=== PATIENT | male | born 1965 | race Caucasian/White ===

== ENCOUNTER 2018-08-22 18:41 | Emergency (ER) | payer OTHER, BC ==
[2018-08-22 19:09] VITALS: BP 139/93
[2018-08-22] MEDS ORDERED: Orphenadrine 100 MG Tab.ER PO STA (19:38)
--- NOTE | 2018-08-22 19:43 | EDM.PDOC ---
ED HPI GENERAL MEDICAL PROBLEM - General Chief Complaint: Back Pain or Injury Stated Complaint: TWISTED LOWER RIGHT BACK AT WORK Time Seen by Provider: 08/22/18 19:09 Source of Information: Reports: Patient, RN Notes Reviewed History Limitations: Reports: No Limitations - History of Present Illness INITIAL COMMENTS - FREE TEXT/NARRATIVE: The patient states that he slipped around 14:45, while at work. He states that he did not fall, but he incurred right lower back pain with radiation down his posterior thigh to about the level of the knee. He states that he continued to work, slowly. The pain was made worse with twisting motions, but essentially resolved if he remained still. He had no weakness, however, about 10 minutes later, his right lower extremity simply gave out while he was walking around his truck, and he fell to the ground. The patient states that he has had prior lower back pain with lower extremity radiculopathy. He states that he developed similar symptoms on 07/01/2018, causing him to be out of work for about 2-1/2 weeks. A workup included a CT scan , and treatment included a muscle relaxant, physical therapy, and acute care clinical nurse specialist. The patient states that due to various body aches, he has been taking 800 mg of ibuprofen 2 to 3 times a day, every day, for about 20 years. The patient's PCP is Dr. Mylene Randhawa, in [place]. Right Lower Back Pain Score (Numeric/FACES): 3 - Related Data Allergies Allergy/AdvReac Type Severity Reaction Status Date / Time latex Allergy Rash Verified 08/22/18 19:03 Home Meds: Home Meds Lisinopril 20 mg PO DAILY 08/22/18 [History] Metoprolol. 1 tab PO DAILY 08/22/18 [History] Orphenadrine [Norflex] 1 tab PO Q12H PRN #20 tab.er 08/22/18 [Rx] Simvastatin 1 tab PO DAILY 08/22/18 [History] Past Medical History Cardiovascular History: Reports: Afib (paroxysmal, s/p ablation), High Cholesterol, Hypertension Respiratory History: Reports: Sleep Apnea (nightly AutoPAP) Gastrointestinal History: Reports: Cholelithiasis, GERD, Hemorrhoids Genitourinary History: Reports: Renal Calculus Endocrine/Metabolic History: Reports: Obesity/BMI 30+ - Past Surgical History HEENT Surgical History: Reports: Oral Surgery (wisdom teeth extraction) Cardiovascular Surgical History: Reports: Other (See Below) (Coronary angiogram 2016. 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 ED EXAM,LOWER BACK PAIN/INJURY - Physical Exam Exam: See Below Exam Limited By: No Limitations General Appearance: Alert, WD/WN, No Apparent Distress Eye Exam: Bilateral Eye: EOMI, Normal Inspection Ears: Normal External Exam, Hearing Grossly Normal Nose: Normal Inspection Throat/Mouth: Normal Inspection, Normal Lips, Normal Voice, No Airway Compromise Head: Atraumatic, Normocephalic Neck: Normal Inspection, Full Range of Motion Respiratory/Chest: No Respiratory Distress, Lungs Clear, Normal Breath Sounds, No Accessory Muscle Use Cardiovascular: Normal Peripheral Pulses, Regular Rate, Rhythm, No Gallop, No JVD, No Murmur, No Rub GI/Abdominal: Normal Bowel Sounds, Soft, Non-Tender, No Organomegaly, No Distention, No Abnormal Bruit, No Mass, Other (Obese) (Male) Exam: Deferred Rectal (Males) Exam: Deferred Back Exam: Normal Inspection, Other (The patient is able to flex his spine to 110-120 (extremely flexible), but extend the spine to only about 10. He is able to tilt the spine bilaterally to about 30. He is able to twist the spine bilaterally to about 45. Unilateral knee bend is normal bilaterally. Straight leg raise is asymptomatic to about 80 bilaterally, limited by tension in the posterior thigh, but no radicular pain.). No: Paraspinal Tenderness, Vertebral Tenderness Extremities: Normal Inspection, Normal Range of Motion, No Pedal Edema, Normal Capillary Refill Neurological: Alert, Normal Dorsiflexion, Normal Plantar Flexion, No Motor/ Sensory Deficits, Oriented x 3 Psychiatric: Normal Affect Skin Exam: Warm, Dry, Intact, Normal Color, No Rash Course - Vital Signs Last Recorded V/S: Last Vital Signs Temp 36.6 C 08/22/18 19:05 Pulse 88 08/22/18 19:05 Resp 17 08/22/18 19:05 BP 139/93 H 08/22/18 19:05 Pulse Ox 97 08/22/18 19:05 - Orders/Labs/Meds Meds: Medications Discontinued Medications Generic Name Dose Route Start Last Admin Trade Name Larry PRN Reason Stop Dose Admin Orphenadrine Citrate 100 mg 08/22/18 19:38 08/22/18 19:41 Norflex PO 08/22/18 19:39 100 mg ONETIME STA Administration - Re-Assessments/Exams Free Text/Narrative Re-Assessment/Exam: 08/22/18 19:38 Radiation of pain down the posterior right lower extremity to the knee is concerning for a herniated intervertebral disc, however, the patient's physical exam is not consistent with that, instead, the nerve irritation appears to be coming from a muscle spasm that may be in the lower back or buttock. I am therefore not recommending a course of steroids, rather, I believe the patient would benefit more from a muscle relaxant and some ibuprofen. The patient will be started on Norflex, and I will prescribe a 10 day course. With respect to ibuprofen, however, the patient is already taking a large quantity, for the past 20 years. This significantly increases his risk for the development of coronary artery disease, and I therefore have to recommend against its continued use. The patient explained, however, that he has bad shoulders, continued knee pain, and numerous bone spurs in his feet, and that if he doesn't take ibuprofen, he can't work. I don't have any quick or easy solutions for the patient, other than to suggest that he discuss it with his PCP , to see if there might be some surgical remedies. Departure - Departure Time of Disposition: 19:41 Disposition: Home, Self-Care 01 Condition: Good Clinical Impression: Spasm of back muscles - Discharge Information *PRESCRIPTION DRUG MONITORING PROGRAM REVIEWED*: Not Applicable *COPY OF PRESCRIPTION DRUG MONITORING REPORT IN PATIENT TORO: Not Applicable Prescriptions: Orphenadrine [Norflex] 1 tab PO Q12H PRN #20 tab.er PRN Reason: Muscle Spasm Instructions: Muscle Cramps and Spasms, [id number] Referrals: PCP,Not In Area [Primary Care Provider] - Forms: ED Department Discharge, ED Return to Work/School Form Additional Instructions: You were seen in the emergency room for lower right back pain that radiates down the back of your right thigh, after slipping at work. Based on your history and physical examination, your pain is due to a muscle spasm, but not likely due to a herniated intervertebral disc. You have been started on the muscle relaxant Norflex. A prescription for Norflex [facility], located in the [place]. Take one tablet of Norflex every 12 hours, starting tomorrow morning, 08/23/2018, as prescribed. In addition to Norflex, you may also take [id number] Tylenol, 1000 mg ( two 500 mg tablets) up to every 6 hours, as needed for pain. As discussed, we recommend that you discontinue ibuprofen, as continuing to take it will increase the risk of your developing coronary artery disease. As discussed, it is essential that you stay active. Swimming is best, but walking is good as well. A note for restricted duty for Friday and Friday has been provided to. If you are not feeling substantially better by 08/25/2018, please follow -up with your PCP on 08/26/2018. If any other problems, please do not hesitate to return to the ER.
== END 2018-08-22 19:59 | disposition home or self-care (01) ==
LOC: JD.ED 18:41
DX: M62.830 Muscle spasm of back (principal); I48.91 Unspecified atrial fibrillation; E78.00 Pure hypercholesterolemia, unspecified; I10 Essential (primary) hypertension; E66.9 Obesity, unspecified; Z91.040 Latex allergy status; Z79.899 Other long term (current) drug therapy; Z68.41 Body mass index [BMI] 40.0-44.9, adult
CPT/HCPCS: 99283; A9270

== ENCOUNTER 2021-01-12 15:10 | Emergency (ER) | payer BC ==
[2021-01-12 15:28] VITALS: BP 143/95; PULSE 88
--- NOTE | 2021-01-12 15:41 | EDM.PDOC ---
ED HPI GENERAL MEDICAL PROBLEM - General Chief Complaint: General Stated Complaint: BRUSING TO BUTTOX Time Seen by Provider: 01/12/21 15:25 Source of Information: Reports: Patient History Limitations: Reports: No Limitations - History of Present Illness INITIAL COMMENTS - FREE TEXT/NARRATIVE: 55-year-old male presents to the ED from the occupational health clinic on [facility]. 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 He states on Friday around 1400 hrs. he opened up the back doors of a trailer that contained numerous pieces of steel etc. He states shortly after opening the doors a few pieces of steel tumbled out towards him and then he appreciated a very large piece of steel that went up to the ceiling likely weighed between 3 and 400 pounds was coming down towards him. He turned to shield himself and was struck primarily in the left buttock and knocked to the ground. He was not pinned however. He states he was able to get up and continued working the rest of the day. Subsequently the entire left buttock has turned black and blue and is markedly swollen. He is continue to work all week in spite of the pain. He states is most painful to sit on and get in and out of the vehicle. He states today there is been more pain with sharp stabbing biting type pain which sounds like neurogenic pain. At no time as the pain radiated below his knee. He is never really appreciated that his urine was dark muddy or in color or marin in color to suggest myoglobinuria. He is not on any blood thinners but does take aspirin daily. Onset: Sudden Onset Date: 01/08/21 Onset Time: 14:00 Duration: Day(s):, Getting Worse (And is getting worse today in the left buttock more biting burning and pinching sensation. The suggest neurogenic pain) Location: Reports: Other (Left buttock) Quality: Reports: Ache, Throbbing Severity: Moderate (7 out of 10) Improves with: Reports: Rest Worsens with: Reports: Movement Context: Reports: Trauma (Struck by a large heavy piece of steel estimated to weigh 3 to 400 pounds as it fell out of the back of a semitrailer he was unloading 4 days ago). Denies: Activity (Worse with sitting of course and trying to get in and out of a vehicle), Exercise, Lifting, Sick Contact Associated Symptoms: Reports: No Other Symptoms Treatments INBOUND CUSTOMER SERVICE AGENT: Reports: Acetaminophen, Other (see below) Other Treatments INBOUND CUSTOMER SERVICE AGENT: motrin 800 mg this morning Left Buttock Pain Score (Numeric/FACES): 10 - Related Data Allergies Allergy/AdvReac Type Severity Reaction Status Date / Time latex Allergy Severe Rash Verified 01/12/21 15:33 Home Meds: Home Meds Lisinopril 20 mg PO DAILY 08/22/18 [History] Metoprolol. 1 tab PO DAILY 08/22/18 [History] Orphenadrine [Norflex] 1 tab PO Q12H PRN #20 tab.er 08/22/18 [Rx] Simvastatin 1 tab PO DAILY 08/22/18 [History] Past Medical History Cardiovascular History: Reports: Afib (paroxysmal, s/p ablation), High Cholesterol, Hypertension Other Cardiovascular History: Cardioablasion and cardioversion. Started with atrial fibrillation in the early and had cardio ablation procedure carried out in 2014. Respiratory History: Reports: Sleep Apnea (nightly AutoPAP) Other Respiratory History: patient using CPAP at home Gastrointestinal History: Reports: Cholelithiasis, GERD, Hemorrhoids Other Gastrointestinal History: patient dx having stones in gallbladder, scheduled for cholecystectomy on friday with Dr Howard. Genitourinary History: Reports: Renal Calculus Endocrine/Metabolic History: Reports: Obesity/BMI 30+ - Past Surgical History HEENT Surgical History: Reports: Oral Surgery (wisdom teeth extraction) Cardiovascular Surgical History: Reports: Other (See Below) (Coronary angiogram 2016. 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 Denies: Chest Pain, Claudication, Edema, Lightheadedness, Orthopnea Endocrine: Reports: Fatigue (Occasional) GI/Abdominal: Reports: No Symptoms : Reports: Other (Nocturia x1 or 2) Musculoskeletal: Reports: Joint Pain (Low back knees occasional shoulder pain) Skin: Reports: No Symptoms Neurological: Reports: No Symptoms Psychiatric: Reports: No Symptoms Hematologic/Lymphatic: Reports: No Symptoms ED EXAM, GENERAL - Physical Exam Exam: See Below Exam Limited By: No Limitations General Appearance: Alert, WD/WN, No Apparent Distress, Other (Temperature is 36.8. Heart rate 88 and sinus respiratory is 20 with O2 sats of 96% room air. BP 1 4395) Eye Exam: Bilateral Eye: Normal Inspection Respiratory/Chest: No Respiratory Distress, Lungs Clear, Normal Breath Sounds, No Accessory Muscle Use Cardiovascular: Normal Peripheral Pulses, Regular Rate, Rhythm, No Edema, No Gallop, No Murmur, No Rub Extremities: Other (Examination of the left buttock shows the entire buttock to be dark purple in color with marked ecchymoses. There is a large hematoma the size of my palm of my hand in the mid aspect of the buttock which is firmer than the rest. The bruising does travels across the nuchal cleft into the medial rig) Neurological: Alert, Oriented, CN II-XII Intact, Normal Cognition Psychiatric: Normal Affect, Normal Mood Skin Exam: Warm, Dry, Intact, Normal Color, Ecchymosis (Severe ecchymosis as described above left buttock) Course - Vital Signs Last Recorded V/S: Last Vital Signs Temp 36.8 C 01/12/21 15:27 Pulse 88 01/12/21 15:27 Resp 20 01/12/21 15:27 BP 143/95 H 01/12/21 15:27 Pulse Ox 96 01/12/21 15:27 - Orders/Labs/Meds Orders: Active Orders 24 hr Category Date Time Status Pelvis w Cont [CT] Stat Exams 01/12/21 15:37 Taken Sodium Chloride 0.9% [Normal Saline] 100 ml Med 01/12/21 16:15 Active IV ASDIRECTED Medication Orders Sodium Chloride (Normal Saline) 100 mls @ 60 mls/hr IV ASDIRECTED ANNELISE Last Admin: 01/12/21 16:08 Dose: 60 mls/hr Documented by: RAFAEL Labs: Laboratory Tests 01/12/21 01/12/21 01/12/21 Range/Units 15:51 16:11 16:11 WBC 7.59 (4.23-9.07) K/mm3 RBC 5.41 (4.63-6.08) M/mm3 Hgb 15.2 (13.7-17.5) gm/dl Hct 46.2 (40.1-51.0) % MCV 85.4 (79.0-92.2) fl MCH 28.1 (25.7-32.2) pg MCHC 32.9 (32.2-35.5) g/dl RDW Std Deviation 45.9 H (35.1-43.9) fL Plt Count 288 (163-337) K/mm3 MPV 9.4 (9.4-12.3) fl Neut % (Auto) 63.4 (34.0-67.9) % Lymph % (Auto) 21.2 L (21.8-53.1) % Bremer % (Auto) 10.0 (5.3-12.2) % Eos % (Auto) 5.0 (0.8-7.0) Baso % (Auto) 0.3 (0.1-1.2) % Neut # (Auto) 4.81 (1.78-5.38) K/mm3 Lymph # (Auto) 1.61 (1.32-3.57) K/mm3 Bremer # (Auto) 0.76 (0.30-0.82) K/mm3 Eos # (Auto) 0.38 (0.04-0.54) K/mm3 Baso # (Auto) 0.02 (0.01-0.08) K/mm3 Sodium 135 L (136-145) mEq/L Potassium 4.1 (3.5-5.1) mEq/L Chloride 102 (98-107) mEq/L Carbon Dioxide 25 (21-32) mEq/L Anion Gap 12.1 (5-15) BUN 25 H (7-18) mg/dL Creatinine 0.8 (0.7-1.3) mg/dL Est Cr Clr Drug Dosing 129.94 mL/min Estimated GFR (MDRD) > 60 (>60) mL/min BUN/Creatinine Ratio 31.3 H (14-18) Glucose 89 (70-99) mg/dL Calcium 8.4 L (8.5-10.1) mg/dL Total Bilirubin 0.6 (0.2-1.0) mg/dL AST 25 (15-37) U/L ALT 33 (16-63) U/L Alkaline Phosphatase 72 (46-116) U/L Creatine Kinase 304 (39-308) U/L Total Protein 7.1 (6.4-8.2) g/dl Albumin 3.6 (3.4-5.0) g/dl Globulin 3.5 gm/dL Albumin/Globulin Ratio 1.0 (1-2) Urine Color Yellow (Yellow) Urine Appearance Clear (Clear) Urine pH 6.0 (5.0-8.0) Ur Specific Duson > or = 1.030 (1.005-1.030) Urine Protein Negative (Negative) Urine Glucose (UA) Negative (Negative) Urine Ketones Negative (Negative) Urine Occult Blood Trace-intact H (Negative) Urine Nitrite Negative (Negative) Urine Bilirubin Negative (Negative) Urine Urobilinogen 0.2 (0.2-1.0) Ur Leukocyte Esterase Negative (Negative) Urine RBC 0-5 (0-5) /hpf Urine WBC 0-5 (0-5) /hpf Ur Squamous Epith Cells 0-5 (0-5) /hpf Urine Bacteria Few (FEW) /hpf Urine Mucus Moderate H (FEW) /hpf Meds: Medications Generic Name Dose Route Start Last Admin Trade Name Freq PRN Reason Stop Dose Admin Sodium Chloride 100 mls @ 60 mls/hr 01/12/21 16:15 01/12/21 16:08 Normal Saline IV 60 mls/hr ASDIRECTED ANNELISE Administration Discontinued Medications Generic Name Dose Route Start Last Admin Trade Name Freq PRN Reason Stop Dose Admin Iopamidol 100 ml 01/12/21 16:03 01/12/21 16:08 Iopamidol 612 Mg/Ml 100 Ml Bottle IVPUSH 01/12/21 16:04 100 ml ONETIME ONE Administration Iopamidol 50 ml 01/12/21 16:03 01/12/21 16:08 Iopamidol 612 Mg/Ml 50 Ml Sdv IVPUSH 01/12/21 16:04 25 ml ONETIME ONE Administration Sodium Chloride 10 ml 01/12/21 16:03 01/12/21 16:08 Sodium Chloride 0.9% 10 Ml Syringe FLUSH 01/12/21 16:04 10 ml ONETIME ONE Administration - Radiology Interpretation Free Text/Narrative:: 55-year-old male presents to the ED 4 days post blunt force trauma by a large piece of steel weighing 3 to 400 pounds which struck him in the back of his left buttock in the workplace 4 days ago. 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 He states he just simply open the doors to the trailer and the materials inside it shifted and he appreciated that this large steel object was tipping and coming towards him any got away as far as he could before it struck him in the left buttock and propelled into the ground. He states it is swollen up dramatically but the swelling is gone down somewhat. He comes to the emergency room today because of the amount of pain he is experiencing with sharp stabbing biting burning pain suggesting neurogenic pain. At no time as the pain radiated below his knee. He states difficult to sit but he has not missed any work. He clinically would be at high risk of rhabdomyolysis. He states has not appreciated that his urine turned marin or mod he at any time but he states he never looks. Plan routine labs to be obtained. CT of the pelvis and buttock will be obtained. - Re-Assessments/Exams Free Text/Narrative Re-Assessment/Exam: 01/12/21 16:39 White count is normal at 7.59. The auto differential shows 63.4% neutrophils. Hemoglobin is 15.2 with hematocrit of 46.2. Platelet count 288,000. Urinalysis reveals trace of occult blood moderate mucus no white cells or red cells in the urine chemistry is pending. Patient appraised of the findings of the CT scan with only blood in the soft tissues overlying the distal muscles left buttock. No fractures identified. 01/12/21 17:05 Chemistry is now back. Sodium is slightly low at 135. Potassium 4.1 with a chloride of 102. Bicarb is 25. Anion gap is 12.1 with a BUN of 25 slightly elevated. Creatinine is 0.8 with a GFR greater than 60. Glucose is 89 calcium is 8.4 liver function is normal total CPK currently is 304. Total protein 7.1 with an albumin fraction of 3.6. Therefore no clinical evidence of any significant rhabdomyolysis or impact on his kidney function at this time Departure - Departure Time of Disposition: 17:05 Disposition: Home, Self-Care 01 Condition: Fair Clinical Impression: Traumatic hematoma of buttock Qualifiers: Encounter type: initial encounter Qualified Code(s): S30.0XXA - Contusion of lower back and pelvis, initial encounter - Discharge Information *PRESCRIPTION DRUG MONITORING PROGRAM REVIEWED*: Not Applicable *COPY OF PRESCRIPTION DRUG MONITORING REPORT IN PATIENT TORO: Not Applicable Instructions: Hematoma, [id number] Referrals: Mylene Randhawa MD [Primary Care Provider] - Forms: ED Department Discharge Additional Instructions: Evaluation in the emergency room today in regards to injuries sustained in the workplace on Friday around 1400 hrs. he was struck in the left buttock by a large steel piece of machinery that fell from the back of a semitrailer as the load had shifted during transport. This is resulted in a formation of a large amount of blood collection under the skin and in the muscles of the entire left buttock. CT scan reveals no bony injuries and the only the large collection of blood under the skin which will reabsorb on its own over the next 3 to 4 weeks. Current pain syndrome I believe is secondary to contusion to the underlying femoral or sciatic nerve in the buttock which causes biting,stabbing, burning pains and will improve over time as the blood is reabsorbed from the soft tissues overlying the nerve and muscles in your left buttock. Lab test revealed that there is been no adverse effect on your kidney function from injury to the underlying muscles which release myoglobin which is a protein that can get stuck in the filtration tubes in the kidney and cause severe kidney injury or failure. Your lab test show that no such injury has occurred. Kidney function is normal. It is not going to get worse at this point time since it is now 4 days post injury. 10 you Motrin 600 mg every 6 hours as needed for pain relief. Sepsis Event Note (ED) - Focused Exam Vital Signs: Vital Signs Temp Pulse Resp BP Pulse Ox 01/12/21 15:27 36.8 C 88 20 143/95 H 96 - My Orders Last 24 Hours: My Active Orders 01/12/21 15:37 Pelvis w Cont [CT] Stat 01/12/21 16:15 Sodium Chloride 0.9% [Normal Saline] 100 ml IV ASDIRECTED - Assessment/Plan Last 24 Hours: My Active Orders 01/12/21 15:37 Pelvis w Cont [CT] Stat 01/12/21 16:15 Sodium Chloride 0.9% [Normal Saline] 100 ml IV ASDIRECTED
[2021-01-12] MEDS ORDERED: Sodium Chloride 0.9% 10 ML Syringe FLUSH ONE (16:03)
[2021-01-12] MEDS ORDERED: Iopamidol 612 MG/ML 50 ML SDV IVPUSH ONE (16:03)
[2021-01-12] MEDS ORDERED: Iopamidol 612 MG/ML 100 ML Bottle IVPUSH ONE (16:03)
[2021-01-12] MEDS ORDERED: Sodium Chloride 0.9% 100 ML IV SCH (16:15)
--- NOTE | 2021-01-16 08:27 | CT ---
CT pelvis Technique: Multiple axial sections were obtained from above the dome of the diaphragm inferiorly through the pubic symphysis. Intravenous contrast was utilized. No oral contrast has been given. Reconstructed coronal and sagittal images were obtained. Comparison: Prior CT abdomen and pelvis study of 12/28/14. Findings: Distal aorta and iliac vessels show atherosclerotic change with no definite aneurysm. Diverticuli are seen within the sigmoid colon. There is no inflammatory change being seen within the pelvis. No free fluid is seen. Soft tissue density is seen within the left buttocks involving the subcutaneous fat compatible with hematoma. This does not involve the gluteal muscles. Bony structures are intact with no fracture being seen. There is fusion seen within the sacroiliac joints compatible with degenerative change. Degenerative change is also seen within the visualized lower lumbar spine. Impression: 1. Soft tissue hematoma which remains confined to the subcutaneous fat within the left buttocks. 2. No other acute abnormality is seen. There is no abnormality within the adjacent gluteal muscles and no fracture is seen. 3. Other incidental findings as noted above. Diagnostic code #2 MTDD
== END 2021-01-12 17:37 | disposition home or self-care (01) ==
LOC: JD.ED 15:10
DX: S30.0XXA Contusion of lower back and pelvis, initial encounter (principal); I48.91 Unspecified atrial fibrillation; E78.00 Pure hypercholesterolemia, unspecified; I10 Essential (primary) hypertension; K21.9 Gastro-esophageal reflux disease without esophagitis; Z91.040 Latex allergy status; Z79.899 Other long term (current) drug therapy; W22.09XA Striking against other stationary object, initial encounter
CPT/HCPCS: 36415; 72193; 80053; 81001; 82550; 85025; 99284; Q9967